=== PATIENT | male | born 1995 | race Hispanic/Latino ===

== ENCOUNTER 2021-08-31 14:28 | Emergency (ER) | payer OTHER ==
[~2021-08-31] VITALS: Ht 172.7 cm; Wt 86.5 kg
[2021-08-31] MEDS ORDERED: NS 1,000 ML IV ONE (16:50)
[2021-08-31 17:26] LABS: BASO % 0.5 % (0.0-1.0); EOS # 0.2 10^3/uL (0.0-0.5); EOS % 2.2 % (0.0-3.0); HEMATOCRIT 45.3 % (42.0-52.0); HEMOGLOBIN 14.8 g/dl (13.5-17.5); LYMPH # 2.6 10^3/uL (1.5-5.0); LYMPH % 30.2 % (24.0-44.0); MEAN CORPUSCULAR HEMOGLOBIN 27.5 pg (27.0-33.0); MEAN CORPUSCULAR HGB CONC 32.7 g/dl (32.0-36.5); MONO # 0.7 10^3/uL (0.0-0.8); MONO % 7.9 % (2.0-8.0); NEUTROPHILS # 5.2 10^3/uL (1.5-8.5); PLATELET COUNT, AUTOMATED 171 10^3/uL (150-450); RED BLOOD COUNT 5.39 10^6/uL (4.30-6.10); WHITE BLOOD COUNT 8.7 10^3/uL (4.0-10.0)
[2021-08-31 18:04] LABS: ALBUMIN 4.1 GM/DL (3.2-5.2); ALT/SGPT 45 U/L (12-78); BILIRUBIN,DIRECT < 0.1 MG/DL (0.0-0.2); BILIRUBIN,TOTAL 0.2 MG/DL (0.2-1.0); BLOOD UREA NITROGEN 19 MG/DL (7-18); CALCIUM LEVEL 9.3 MG/DL (8.5-10.1); CARBON DIOXIDE LEVEL 27 MEQ/L (21-32); CHLORIDE LEVEL 108 MEQ/L (98-107); CREATININE FOR GFR 1.12 MG/DL (0.70-1.30); FREE T4 0.89 NG/DL (0.76-1.46); GLOMERULAR FILTRATION RATE > 60.0 (>60); GLUCOSE, FASTING 100 MG/DL (70-100); POTASSIUM SERUM 4.1 MEQ/L (3.5-5.1); SODIUM LEVEL 141 MEQ/L (136-145); TOTAL PROTEIN 7.8 GM/DL (6.4-8.2)
[2021-08-31 18:51] VITALS: BP 112/58
== END 2021-08-31 19:40 | disposition home or self-care (01) ==
LOC: EDBD 14:28 → M ED 14:28
DX: R42 Dizziness and giddiness (principal); R94.31 Abnormal electrocardiogram [ECG] [EKG]; E86.0 Dehydration; F41.9 Anxiety disorder, unspecified

== ENCOUNTER 2023-08-30 09:56 | Emergency (ER) | payer OTHER ==
[~2023-08-30] VITALS: Ht 172.7 cm; Wt 82.7 kg
[2023-08-30] MEDS: diazePAM 10MG/2ML SYRINGE IM ONE (11:00)
[2023-08-30] MEDS ORDERED: PRED20TA PO (12:05)
[2023-08-30] MEDS: KETOROLAC 60MG 2ML VIAL IM ONE (12:05)
[2023-08-30] MEDS ORDERED: MELO15TA28 PO (12:06)
[2023-08-30] MEDS ORDERED: CYCL-707 PO (12:06)
[2023-08-30 12:18] VITALS: BP 127/76; TEMP 97.9; O2SAT 100
== END 2023-08-30 12:38 | disposition home or self-care (01) ==
LOC: EDBD 09:56 → M ED 09:56
DX: M54.50 Low back pain, unspecified (principal); Z79.52 Long term (current) use of systemic steroids; Z79.899 Other long term (current) drug therapy
CPT/HCPCS: 72131; 96372; 99284; J1885; J3360